=== PATIENT | female | born 1975 | race Caucasian/White ===

== ENCOUNTER 2018-02-18 08:40 | Day surgery (SDC) | payer BC ==
[2018-02-13 16:25] VITALS: BMI 31.7
--- NOTE | 2018-02-18 08:02 | P.GSHP ---
History of Present Illness H&P Date: 02/18/18 CHIEF COMPLAINT: GERD HISTORY OF PRESENT ILLNESS: The patient is a 42-year-old female who presents reports gastroesophageal reflux disease. Upper endoscopy was offered for further evaluation and management. PAST MEDICAL HISTORY: Please see list. PAST SURGICAL HISTORY: Please see list. MEDICATIONS: Please see list. ALLERGIES: Please see list. SOCIAL HISTORY: No illicit drug use FAMILY HISTORY: No reports of Crohn disease or ulcerative colitis. REVIEW OF ORGAN SYSTEMS: CONSTITUTIONAL: No reports of fevers or chills. GI: Denies any blood in stools or constipation. PHYSICAL EXAM: VITAL SIGNS: Stable GENERAL: Well-developed and pleasant in no acute distress. HEENT: No scleral icterus. Extraocular movements grossly intact. Moist buccal mucosa. NECK: Supple without lymphadenopathy. CHEST: Unlabored respirations. Equal bilateral excursions. CARDIOVASCULAR: Regular rate and rhythm. Distal 2+ pulses. ABDOMEN: Soft, nondistended. MUSCULOSKELETAL: No clubbing, cyanosis, or edema. ASSESSMENT: 1. Gastroesophageal reflux disease PLAN: 1. Recommend proceeding with an upper endoscopy Past Medical History Past Medical History: Blood Disorder, GERD/Reflux, Hypertension Additional Past Medical History / Comment(s): RLS. HX KIDNEY STONES. MIGRAINES. ANEMIA, 2 IRON INFUSIONS 10/2017. EDEMA HANDS AND BLE. RECENT PO AB RX FOR H-PYLORI. History of Any Multi-Drug Resistant Organisms: None Reported Past Surgical History: Orthopedic Surgery, Tonsillectomy, Tubal Ligation, Uterine Ablation Additional Past Surgical History / Comment(s): D&C. EXC GANGLION CYSTS MELIDA HANDS. 3 KIDNEY STONE PROC. COLONOSCOPY. Past Anesthesia/Blood Transfusion Reactions: Family History of Problems w/ Anesthesia, Motion Sickness, Postoperative Nausea & Vomiting (PONV) Additional Past Anesthesia/Blood Transfusion Reaction / Comment(s): AFTER 1 SURGERY HAD "HARD TIME BRINGING BLOOD PRESSURE BACK UP, IN ICU FOR FEW DAYS." FATHER HAS PONV. Smoking Status: Never smoker - Past Family History Father Family Medical History: Cancer Additional Family Medical History / Comment(s): TRACHEAL CA Mother Family Medical History: Cancer Brother(s) Family Medical History: CVA/TIA Medications and Allergies Home Medications Medication Instructions Recorded Confirmed Type ALPRAZolam [Xanax] 1 mg PO TID 09/14/15 02/13/18 History rOPINIRole HCL [Requip] 3 mg PO TID 08/09/16 02/13/18 History Atenolol [Tenormin] 25 mg PO BID 02/13/18 02/13/18 History Dextroamphetamine/Amphetamine 30 mg PO TID 02/13/18 02/13/18 History [Adderall] Famotidine [Pepcid] 40 mg PO DAILY 02/13/18 02/13/18 History Hydrochlorothiazide [Hydrodiuril] 25 mg PO DAILY 02/13/18 02/13/18 History Phentermine HCl [Adipex-P] 37.5 mg PO QAM 02/13/18 02/13/18 History Topiramate [Topamax] 25 mg PO DAILY 02/13/18 02/13/18 History buPROPion SR [Wellbutrin Sr] 150 mg PO DAILY 02/13/18 02/13/18 History Allergies Allergy/AdvReac Type Severity Reaction Status Date / Time No Known Allergies Allergy Verified 02/13/18 15:55
[~2018-02-18 08:40] MED LIST: LACTATED RINGERS 1,000 ML IV SCH; LIDOCAINE 1% 20 ML VIAL (10MG/ML) FOR IV START INTRADERMA PRN
[2018-02-18 09:49] VITALS: TEMP 97.8
[2018-02-18] MEDS ORDERED: fentaNYL (PF) 50 MCG/ML 2 ML AMP ONE (10:29)
[2018-02-18] MEDS ORDERED: LIDOCAINE 1% INJ 10MG/ML (20 ML MDV) ONE (10:29)
[2018-02-18] MEDS ORDERED: PROPOFOL 10 MG/ML 20 ML VIAL IV ONE (10:29)
--- NOTE | 2018-02-18 10:42 | P.PCN ---
Date of Procedure: 02/18/18 Description of Procedure: PREOPERATIVE DIAGNOSIS: Gastroesophageal reflux disease. POSTOPERATIVE DIAGNOSIS: Gastritis. Gastroesophageal reflux disease. OPERATION: Esophagogastroduodenoscopy with biopsies along antrum. SURGEON: Krupa Wogn MD ANESTHESIA: MAC. INDICATIONS: The patient is a 42-year-old female who presents with a history of reflux disease. Benefits and risks of the procedure were described. Informed consent was obtained. DESCRIPTION: The patient was brought into the endoscopy suite and laid in the left lateral decubitus position. An Olympus gastroscope was passed along the posterior oropharynx down to the distal esophagus where the squamocolumnar junction was encountered at 35 cm from the incisors. The stomach was entered and no bile reflux was found. Additional findings are listed below. Biopsies with cold forceps were obtained of the antrum. The first through third portion of the duodenum was examined and unremarkable. Retroflexion of the scope confirmed Hill grade 1 lower esophageal valve. The squamocolumnar junction demostrated chronic LA grade B erosive esophagitis. The stomach was desufflated. The patient tolerated the procedure well. FINDINGS: Squamocolumnar junction 35 cm from the incisors. Diaphragmatic hiatus at 35 cm. Hill grade 1 lower esophageal valve. LA grade B erosive esophagitis. Chronic gastritis No active duodenitis. RECOMMENDATIONS: Further recommendations pending results of pathology report. Upper endoscopy as needed. Plan - Discharge Summary New Discharge Prescriptions: No Action ALPRAZolam [Xanax] 1 mg PO TID rOPINIRole HCL [Requip] 3 mg PO TID Atenolol [Tenormin] 25 mg PO BID buPROPion SR [Wellbutrin Sr] 150 mg PO DAILY Dextroamphetamine/Amphetamine [Adderall] 30 mg PO TID Famotidine [Pepcid] 40 mg PO DAILY Hydrochlorothiazide [Hydrodiuril] 25 mg PO DAILY Phentermine HCl [Adipex-P] 37.5 mg PO QAM Topiramate [Topamax] 25 mg PO DAILY Discharge Medication List ALPRAZolam [Xanax] 1 mg PO TID 09/14/15 [History] rOPINIRole HCL [Requip] 3 mg PO TID 08/09/16 [History] Atenolol [Tenormin] 25 mg PO BID 02/13/18 [History] Dextroamphetamine/Amphetamine [Adderall] 30 mg PO TID 02/13/18 [History] Famotidine [Pepcid] 40 mg PO DAILY 02/13/18 [History] Hydrochlorothiazide [Hydrodiuril] 25 mg PO DAILY 02/13/18 [History] Phentermine HCl [Adipex-P] 37.5 mg PO QAM 02/13/18 [History] Topiramate [Topamax] 25 mg PO DAILY 02/13/18 [History] buPROPion SR [Wellbutrin Sr] 150 mg PO DAILY 02/13/18 [History]
[2018-02-18 11:26] VITALS: BP 14/72; PULSE 55; RESP 18
== END 2018-02-18 11:30 | disposition home or self-care (01) ==
LOC: ORWHC2ENDO 08:40
PROVIDERS: ATTEND Surgery Plastic and Reconstructive Surgery
DX: K29.50 Unspecified chronic gastritis without bleeding (principal); I10 Essential (primary) hypertension; G25.81 Restless legs syndrome; K21.0 Gastro-esophageal reflux disease with esophagitis; F39 Unspecified mood [affective] disorder; G43.909 Migraine, unspecified, not intractable, without status migrainosus; K44.9 Diaphragmatic hernia without obstruction or gangrene; Z79.899 Other long term (current) drug therapy; Z87.442 Personal history of urinary calculi
CPT/HCPCS: 81025; 88305; 43239; J2001; J3010; J2704

== ENCOUNTER → 2018-02-19 | Outpatient (CLI) | payer BC ==
--- NOTE | 2018-02-19 09:03 | US ---
EXAMINATION TYPE: US gallbladder DATE OF EXAM: 02/19/2018 COMPARISON: NONE CLINICAL HISTORY: K80.20 Gallstones. abd pain, back pain, h/o h pylori and anemic, renal stones EXAM MEASUREMENTS: Liver Length: 17.2 cm Gallbladder Wall: 0.2 cm CBD: 0.4 cm Right Kidney: 10.5 x 4.9 x 5.1 cm bowel gas limits exam Pancreas: limited views due to bowel gas Liver: wnl Gallbladder: wnl Evidence for sonographic Mandujano's sign: no CBD: wnl Right Kidney: wnl IMPRESSION: No sonographic evidence of cholelithiasis or acute cholecystitis. No right renal calculi are seen sonographically. No right-sided hydronephrosis.
== END | disposition home or self-care (01) ==
LOC: RADUSMAIN 08:01
PROVIDERS: ATTEND Surgery Plastic and Reconstructive Surgery
DX: K80.20 Calculus of gallbladder without cholecystitis without obstruction (principal)
CPT/HCPCS: 76705

== ENCOUNTER → 2018-02-26 | Outpatient (CLI) | payer BC ==
--- NOTE | 2018-02-26 09:17 | NM ---
EXAMINATION TYPE: NM hepatobiliary w EF DATE OF EXAM: 02/26/2018 COMPARISON: 02/19/2018 HISTORY: Abdominal pain TECHNIQUE: After the intravenous administration of 5.31 mCi Tc 99m Mebrofenin hepatobiliary scintigra phy is performed. Immediate images post injection. FINDINGS: There is satisfactory initial accumulation of tracer by the liver. The gallbladder is visualized wit hin 10 minutes. At one hour 8 ounces of oral ensure plus is given to mimic CCK and gallbladder ejecti on fraction is calculated at 77 %, in the normal range. Therefore there is no scintigraphic evidence of cystic or common bile duct obstruction to suggest acute cholecystitis or gallbladder dyskinesia. IMPRESSION: No scintigraphic evidence of acute cholelithiasis, chronic cholelithiasis or biliary dysk inesia.
== END | disposition home or self-care (01) ==
LOC: RADNMMAIN 07:02
PROVIDERS: ATTEND Surgery Plastic and Reconstructive Surgery
DX: K80.20 Calculus of gallbladder without cholecystitis without obstruction (principal)
CPT/HCPCS: 78226; A9537

== ENCOUNTER → 2018-04-17 | Day surgery (SDC) | payer BC ==
[2018-04-16 10:02] VITALS: BMI 31.7
[~2018-04-17] MED LIST changes: +BUPIVACAINE (PF) 0.5% 30 ML VIAL SQ ONE; +DEXAMETHASONE SOD PHOSPHATE 10 MG/ML 1 ML VIAL IV ONE; +GLYCOPYRROLATE 0.2 MG/ML 2 ML VIAL ONE; +HEPARIN SODIUM,PORCINE 5,000 UNIT/ML 1 ML VIAL SQ ONE; +HYDROcodone/APAP 5-325MG 1 EACH TAB PO ONE; +INDOCYANINE GREEN 25 MG VIAL IV ONE; +INDOCYANINE GREEN 25 MG VIAL IV STA; +LACTATED RINGERS 1,000 ML IV ONE; +LIDOCAINE 1% INJ 10MG/ML (20 ML MDV) ONE; +MIDAZOLAM 2 MG/2 ML VIAL ONE; +NEOSTIGMINE 1 MG/ML 10 ML VIAL ONE; +ONDANSETRON 4 MG/2 ML VIAL IVP ONE; +PROPOFOL 10 MG/ML 20 ML VIAL IV ONE; +SCOPOLAMINE 1.5MG/72HR PATCH TRANSDERM ONE; +SUCCINYLCHOLINE CHLORIDE 100 MG/5 ML SYR IV ONE; +VECURONIUM 10 MG VIAL IV ONE; +ceFAZolin 2 GM in SODIUM CHLORIDE 0.9% 100 ML IVPB ONE; +ceFAZolin IN SWFI 2 GM/20 ML SYRINGE IVP ONE; +ePHEDrine SULFATE/0.9% NACL/PF 50 MG/5 ML SYRINGE IV ONE; +fentaNYL (PF) 50 MCG/ML 2 ML AMP ONE
[2018-04-17 14:26] LABS: ALT 23 U/L (9-52); AST 22 U/L (14-36); Albumin 4.6 g/dL (3.5-5.0); Alkaline Phosphatase 91 U/L (38-126); Anion Gap 11 mmol/L; Blood Urea Nitrogen 10 mg/dL (7-17); Calcium 9.2 mg/dL (8.4-10.2); Carbon Dioxide 21 mmol/L (22-30); Chloride 109 mmol/L (98-107); Glucose 97 mg/dL (74-99); Sodium 141 mmol/L (137-145); Total Bilirubin 0.4 mg/dL (0.2-1.3); Total Protein 7.5 g/dL (6.3-8.2)
--- NOTE | 2018-04-17 14:56 | P.GSHP ---
History of Present Illness H&P Date: 04/17/18 CHIEF COMPLAINT: Cholecystitis HISTORY OF PRESENT ILLNESS: The patient is a 42-year-old female who presents with history of epigastric including right upper quadrant abdominal pain. She underwent diagnostic studies for her gallbladder. Separately her clinical picture was consistent with cholecystitis. Now she presents for surgical intervention. PAST MEDICAL HISTORY: Please see list PAST SURGICAL HISTORY: Please see list MEDICATIONS: Please see list ALLERGIES: Denies. SOCIAL HISTORY: No illicit drug use or recent tobacco use FAMILY HISTORY: Pertinent for gallbladder disease REVIEW OF ORGAN SYSTEMS: CONSTITUTIONAL: No reports of fevers or chills. HEENT: Denies any troubles with the vision or hearing. ENDOCRINE: No reports of hypothyroidism. No diabetes. RESPIRATORY: No recent pneumonias. CARDIOVASCULAR: Denies chest pain or palpitations GI: No blood in stools or constipation. MUSCULOSKELETAL: Has occasional joint pain including back pain. NEURO: No seizure disorders or headaches. No recent stroke. PSYCH: No depression or suicidal ideation. HEMATOLOGIC: No personal or family history of DVTs or pulmonary emboli. PHYSICAL EXAM: VITAL SIGNS: Afebrile vital signs stable GENERAL: Well-developed pleasant in no acute distress. HEENT: No scleral icterus. Extraocular movements grossly intact. Moist buccal mucosa. NECK: Supple without lymphadenopathy. CHEST: Unlabored respirations. Equal bilateral excursions. CARDIOVASCULAR: Regular rate regular rhythm rhythm. Distal 2+ pulses. ABDOMEN: Soft, nondistended. Tender along the epigastrium and right upper quadrant. MUSCULOSKELETAL: No clubbing, cyanosis, or edema. NEURO: Cranial nerves II to XII within normal limits. No focal or lateralizing signs. PSYCH: Alert and oriented to person, place and time. ASSESSMENT: 1. Epigastric and right upper quadrant abdominal pain 2. Chronic cholecystitis 3. Symptomatic gallstones. PLAN: 1. Will need a robotic cholecystectomy possible open. Benefits and risks were described. 2. Heparin for DVT prophylaxis 5000 units. 3. Antibiotic prophylaxis. Past Medical History Past Medical History: GERD/Reflux, Hyperlipidemia, Hypertension, Pneumonia Additional Past Medical History / Comment(s): migraines, restless legs, overactive gallbladder, anemia, hx kidney stones, septic after surgery for kidney stones, "damaged esophagus from acid reflux" History of Any Multi-Drug Resistant Organisms: None Reported Past Surgical History: Orthopedic Surgery, Tonsillectomy, Tubal Ligation, Uterine Ablation Additional Past Surgical History / Comment(s): D&C, ganglion cyst ynes hands, 3 surgeries for kidney stones, EGD, colonoscopy Past Anesthesia/Blood Transfusion Reactions: Blood Transfusion Reaction, Family History of Problems w/ Anesthesia, Motion Sickness, Postoperative Nausea & Vomiting (PONV) Additional Past Anesthesia/Blood Transfusion Reaction / Comment(s): AFTER 1 SURGERY HAD "HARD TIME BRINGING BLOOD PRESSURE BACK UP, IN ICU FOR FEW DAYS." was septic, denies any diff with intubation, FATHER and brother - PONV. pt felt "warm" with transfusion and got benadryl Smoking Status: Never smoker - Past Family History Father Family Medical History: Cancer Additional Family Medical History / Comment(s): esopahgeal Mother Family Medical History: Cancer Additional Family Medical History / Comment(s): breast Brother(s) Family Medical History: CVA/TIA Medications and Allergies Home Medications Medication Instructions Recorded Confirmed Type ALPRAZolam [Xanax] 1 mg PO TID PRN 09/14/15 04/16/18 History rOPINIRole HCL [Requip] 3 - 9 mg PO HS PRN 08/09/16 04/17/18 History Atenolol [Tenormin] 25 mg PO BID 02/13/18 04/16/18 History Dextroamphetamine/Amphetamine 30 mg PO TID 02/13/18 04/17/18 History [Adderall] Hydrochlorothiazide [Hydrodiuril] 25 mg PO DAILY 02/13/18 04/16/18 History Topiramate [Topamax] 25 mg PO DAILY 02/13/18 04/16/18 History buPROPion SR [Wellbutrin Sr] 150 mg PO DAILY 02/13/18 04/16/18 History Omeprazole 40 mg PO DAILY #30 capsule. 02/18/18 04/16/18 Rx Allergies Allergy/AdvReac Type Severity Reaction Status Date / Time No Known Allergies Allergy Verified 04/16/18 09:51 Surgical - Exam Vital Signs Temp Pulse Resp BP Pulse Ox 98.2 F 67 18 138/83 100 04/17/18 13:48 04/17/18 13:48 04/17/18 13:48 04/17/18 13:48 04/17/18 13:48 Results - Labs 04/17/18 14:05 Abnormal Lab Results - Last 24 Hours (Table) 04/17/18 Range/Units 14:05 Chloride 109 H (98-107) mmol/L Carbon Dioxide 21 L (22-30) mmol/L Diabetes panel 04/17/18 Range/Units 14:05 Sodium 141 (137-145) mmol/L Potassium 4.0 (3.5-5.1) mmol/L Chloride 109 H (98-107) mmol/L Carbon Dioxide 21 L (22-30) mmol/L BUN 10 (7-17) mg/dL Creatinine 0.60 (0.52-1.04) mg/dL Glucose 97 (74-99) mg/dL Calcium 9.2 (8.4-10.2) mg/dL AST 22 (14-36) U/L ALT 23 (9-52) U/L Alkaline Phosphatase 91 (38-126) U/L Total Protein 7.5 (6.3-8.2) g/dL Albumin 4.6 (3.5-5.0) g/dL Calcium panel 04/17/18 Range/Units 14:05 Calcium 9.2 (8.4-10.2) mg/dL Albumin 4.6 (3.5-5.0) g/dL Pituitary panel 04/17/18 Range/Units 14:05 Sodium 141 (137-145) mmol/L Potassium 4.0 (3.5-5.1) mmol/L Chloride 109 H (98-107) mmol/L Carbon Dioxide 21 L (22-30) mmol/L BUN 10 (7-17) mg/dL Creatinine 0.60 (0.52-1.04) mg/dL Glucose 97 (74-99) mg/dL Calcium 9.2 (8.4-10.2) mg/dL Adrenal panel 04/17/18 Range/Units 14:05 Sodium 141 (137-145) mmol/L Potassium 4.0 (3.5-5.1) mmol/L Chloride 109 H (98-107) mmol/L Carbon Dioxide 21 L (22-30) mmol/L BUN 10 (7-17) mg/dL Creatinine 0.60 (0.52-1.04) mg/dL Glucose 97 (74-99) mg/dL Calcium 9.2 (8.4-10.2) mg/dL Total Bilirubin 0.4 (0.2-1.3) mg/dL AST 22 (14-36) U/L ALT 23 (9-52) U/L Alkaline Phosphatase 91 (38-126) U/L Total Protein 7.5 (6.3-8.2) g/dL Albumin 4.6 (3.5-5.0) g/dL
[2018-04-17 15:02] LABS: Basophils # (A) 0.1 k/uL (0-0.2); Basophils % (A) 1 %; Eosinophils # (A) 0.4 k/uL (0-0.7); Eosinophils % (A) 6 %; HCT 44.1 % (34.0-46.0); HGB 14.8 gm/dL (11.4-16.0); Lymphocytes # (A) 2.4 k/uL (1.0-4.8); Lymphocytes % (A) 41 %; MCHC 33.5 g/dL (31.0-37.0); MCV 92.4 fL (80.0-100.0); Mean Platelet Volume 6.8; Monocytes # (A) 0.4 k/uL (0-1.0); Monocytes % (A) 6 %; Neutrophils # (A) 2.6 k/uL (1.3-7.7); Neutrophils % (A) 43 %; Platelet Count 339 k/uL (150-450); RBC 4.77 m/uL (3.80-5.40); RDW 13.6 % (11.5-15.5); WBC 5.9 k/uL (3.8-10.6)
--- NOTE | 2018-04-17 15:57 | P.OP ---
Date of Procedure: 04/17/18 Description of Procedure: SURGEON: GONZALES CASTRO MD VENDOR REPRESENTATIVES: PREOPERATIVE DIAGNOSES: 1. Chronic cholecystitis 2. Gastroesophageal reflux disease 3. Obesity due to excess calories, BMI 31.8 4. Depressive disorder. 5. Hypertensive heart disease 6. Anxiety 7. Hyperlipidemia POSTOPERATIVE DIAGNOSES: 1. Chronic cholecystitis 2. Gastroesophageal reflux disease 3. Obesity due to excess calories, BMI 31.8 4. Depressive disorder. 5. Hypertensive heart disease 6. Anxiety 7. Hyperlipidemia OPERATION: Robotic-assisted da Karen Xi laparoscopic cholecystectomy, multiport with FIREFLY ESTIMATED BLOOD LOSS: 5 mL. SPECIMENS REMOVED: Gallbladder. COMPLICATIONS: None. OPERATIVE FINDINGS: 1. Chronic cholecystitis INDICATIONS: The patient is a 42-year-old female who presents with cholelcystitis. Surgical intervention with a laparoscopic cholecystectomy was described at length including injury to the biliary tree, bleeding, infection, need for further surgery. Informed consent was obtained. Robotic assisted laparoscopic approach was described. Benefits and risks of the procedure including but not limited to bleeding, infection, injury to the biliary tree was described. Informed consent was obtained. DESCRIPTION OF PROCEDURE: Patient was brought to the operating room, placed in supine position. After general induction, the abdomen had been prepped and draped in standard sterile fashion. The robotic da Karen XI system was primed. After a timeout protocol was performed, the patient had been prepped and draped in standard sterile fashion. The patient was injected with indocyanine green. A 5 mm 0 degrees laparoscopic trocar entry was performed along the left upper quadrant. The abdomen insufflated to 15 mmHg pressure which she tolerated well. Diagnostic laparoscopy demonstrated no injury to bowel viscera or mesentery. The liver surface was unremarkable. Next, two 8 mm robotic ports were placed along the right upper abdomen. The camera 8-mm port was maintained along the epigastrium. Another 8 mm port was placed along the left upper abdominal wall after exchanging the 5 mm port. Please note that the ports were placed at least 10 to 15 cm away from the target anatomy of the gallbladder. The robot was docked along the left lateral abdomen. The patient was repositioned in reverse Trendelenburg position. Using a grasper for arm 3, a grasper for arm 4, including hook cautery for arm 1 , the robotic system was docked and primed as described. Instruments were interchanged by the research program assistant including hook cautery, Bovie cautery and clip appliers. I had sat at the console. Adhesions were identified along the infundibulum of the gallbladder and addressed using hook cautery. The gallbladder fundus was retracted over the dome of the liver. Initial attention was brought to the infundibulum which was gently retracted in the inferior lateral approach. Using a grasper, the cystic duct including the cystic artery was carefully skeletonized. FIREFLY was used to identify the cystic artery and cystic structures. Large PLASTIC clips were used throughout the entire case. Using a clip organic chemistry teacher 2 clips were placed proximally, and 1 clip was placed distally along the cystic duct and then cauterized with the cautery. Again care was taken to avoid any injury to the biliary tree as the common bile duct was clearly visualized during this portion of dissection. Next, the cystic artery was similarly clipped and cauterized. Electro-Bovie cautery was used to remove the gallbladder from the hepatic fossa. Hemostasis was checked and found to be adequate. The robot was undocked. I re-scrubbed into the case. Using a 10 mm Endo Catch bag via the left upper quadrant incision, the specimen was removed from the abdominal cavity. All pneumoperitoneum instruments were evacuated from the abdominal cavity. The incisions were reapproximated using 4-0 Monocryl in an interrupted subcuticular fashion. Fascial defects were less than 8 mm in size. Please note along the trocar sites, local anesthetic was placed as a field block prior to insertion of all instruments. Liquid glue was applied to the skin. At the end of the procedure needle, sponge, and instrument count had been verified correct by the orthotic finish grinding technician. The patient was transferred to postanesthesia care unit in stable condition. Intraoperative films were shared with the patient's family who were very pleased with the level of care. Console time 14 minutes Plan - Discharge Summary New Discharge Prescriptions: No Action ALPRAZolam [Xanax] 1 mg PO TID PRN PRN Reason: Anxiety rOPINIRole HCL [Requip] 3 - 9 mg PO HS PRN PRN Reason: restless legs Atenolol [Tenormin] 25 mg PO BID buPROPion SR [Wellbutrin Sr] 150 mg PO DAILY Dextroamphetamine/Amphetamine [Adderall] 30 mg PO TID Hydrochlorothiazide [Hydrodiuril] 25 mg PO DAILY Topiramate [Topamax] 25 mg PO DAILY Omeprazole 40 mg PO DAILY #30 capsule. Discharge Medication List ALPRAZolam [Xanax] 1 mg PO TID PRN 09/14/15 [History] rOPINIRole HCL [Requip] 3 - 9 mg PO HS PRN 08/09/16 [History] Atenolol [Tenormin] 25 mg PO BID 02/13/18 [History] Dextroamphetamine/Amphetamine [Adderall] 30 mg PO TID 02/13/18 [History] Hydrochlorothiazide [Hydrodiuril] 25 mg PO DAILY 02/13/18 [History] Topiramate [Topamax] 25 mg PO DAILY 02/13/18 [History] buPROPion SR [Wellbutrin Sr] 150 mg PO DAILY 02/13/18 [History] Omeprazole 40 mg PO DAILY #30 capsule. 02/18/18 [Rx] Patient Instructions/Handouts: *Surgery [facility] - Scopalamine Patch Instructions
[2018-04-17 16:15] VITALS: RESP 16; TEMP 97.4
[2018-04-17] MEDS: HYDROmorphone 0.5 MG/0.5 ML SYRINGE IVP PRN ×4 (16:27→16:56)
[2018-04-17 17:33] VITALS: BP 131/84; PULSE 75
== END | disposition home or self-care (01) ==
LOC: OR 13:17
PROVIDERS: ATTEND Surgery Plastic and Reconstructive Surgery
DX: K81.1 Chronic cholecystitis (principal); K21.9 Gastro-esophageal reflux disease without esophagitis; E78.5 Hyperlipidemia, unspecified; F32.9 Major depressive disorder, single episode, unspecified; G25.81 Restless legs syndrome; I11.9 Hypertensive heart disease without heart failure; E66.09 Other obesity due to excess calories; F41.9 Anxiety disorder, unspecified; Z79.899 Other long term (current) drug therapy; Z87.01 Personal history of pneumonia (recurrent); Z68.31 Body mass index [BMI] 31.0-31.9, adult; Z87.442 Personal history of urinary calculi
CPT/HCPCS: 80053; 85025; 47562; J2250; J1644; J1100; J2710; J2405; J2001; J3010; J0330; J2704; J1170; J0690; 88304

== ENCOUNTER → 2024-05-13 | Outpatient (CLI) | payer BC | END | disposition home or self-care (01) | LOC: LABPRL 09:21 | PROVIDERS: ATTEND Nurse Practitioner Family | DX: Z13.220 Encounter for screening for lipoid disorders (principal); Z13.9 Encounter for screening, unspecified; D63.8 Anemia in other chronic diseases classified elsewhere; E55.9 Vitamin D deficiency, unspecified; E61.1 Iron deficiency; R53.81 Other malaise | CPT/HCPCS: 80053; 80061; 82306; 82728; 83036; 83540; 83550; 84439; 84443; 85025; 86780; 87390; 87491; 87591 ==